=== PATIENT | male | born 1990 | race Native Hawaiian/Other Pacific Islander ===

== ENCOUNTER 2018-06-07 15:24 | Emergency (ER) | payer OTHER ==
[~2018-06-07] VITALS: Ht 172.7 cm; Wt 90.7 kg
[2018-06-07 15:44] VITALS: TEMP 99
[2018-06-07 17:42] VITALS: BP 142/78
== END 2018-06-07 17:42 | disposition home or self-care (01) ==
LOC: ED 15:24
DX: S93.492A Sprain of other ligament of left ankle, initial encounter (principal); X50.1XXA Overexertion from prolonged static or awkward postures, initial encounter
CPT/HCPCS: 99282